=== PATIENT | female | born 1935 | race Two or more races ===

== ENCOUNTER → 2023-03-23 | Outpatient (CLI) | payer MEDICARE, BC, SELFPAY ==
--- NOTE | 2023-03-23 | IMM_PTH ---
PATIENT: ADILENE CRAWFORD LOC: [facility]#:[id number] AGE/SX: 87/F ROOM: RE03/23/[address]: Dr. Moshe Mendoza DO : 1935 BED: DIS: 03/23/2023 SPEC #: [id number] RECD: 03/26/23 13:32 STATUS: LETITIA REQ #: [id number] NICHO: 03/23/23 00:[address]: Moshe Mendoza DEPT: IMMUNOHISTOCHEMISTRY RECD BY: Ivonne Zamudio ENTERED: 03/26/23 13:34 SP TYPE: IMMUNO OTHR DR: Dr. Sarbjit Anaya MD No Primary Care Phys Tissues: THORACIC FLUID Procedures: RCC (add) NAPSIN A (add) CA-125 (add) CEA (add) CK20 (add) CK7 (add) CK8 (add) GIANCARLO (add) HEP PAR (add) HER2 RONEN (add) KI-67 (add) MAMM (add) P53 (add) DE (add) TTF1 (add) Vimentin (add) Pankeratin (add) GATA3 (add) CDX2 (add) ER (initial) S-100 (add) PHYSICIAN & [place] [id number] SPECIMEN INFORMATION: Tissue Source: Thoracentesis fluid Clinical Info: Pleural effusion, carcinoma of fallopian tube Specimen Number: [id number] CPT code: 79647, 42487 x20 METHODOLOGY: Deparaffinized sections of prefer/formalin-fixed tissue or PAP/DQ stained slides are incubated with monoclonal/polyclonal antibodies/oligonucleotide probes. Localization is made via biotin free immunoperoxidase method. Appropriate controls are performed and reacted as expected. Results on target cell population are indicated in the following table: RESULTS: ANTIBODY / CLONE RESULT ER (6F11) negative DE (1E2) negative Her-2neu (CB11) negative Mammaglobin (31A5) negative GATA3 (L50-823) negative AE1-3 (AE1/AE3/PCK26) positive CK7 (OV-TL12/30) positive CK8 (03zjpyY00) positive CK20 (KS20.8) negative CDX2 (VBR0203D) negative Vimentin (V9) negative S-100 (4C4.9) negative TTF-1 (8G7G3/1) negative Napsin A (Rabbit Polyclonal) negative HepPar (OCh1E5) negative RCC (PN-15) negative GIANCARLO (E29) positive CEA (11-7/TF-3HB-1) negative CA125 (OC125) positive P53 (DO-7) positive, 80% Ki-67 (30-9) positive, 75% These tests were developed and their performance characteristics determined by [facility]. They may not have been cleared or approved by the U.S. Food and Drug Administration. The FDA has determined that such clearance or approval is not necessary. The above immunohistochemical/dualISH markers are ordered and reviewed by the Pathologist. INTERPRETATION: Thoracentesis fluid (cell block): Metastatic carcinoma. See comment. AM:kirti 03/27/2023 Comment: Consistent with metastatic ovarian/fallopian tube primary.
--- NOTE | 2023-03-23 09:31 | US_ITS ---
PROCEDURE: ULTRASOUND GUIDED THORACENTESIS. DATE: March 23, 2023. INDICATION: Female, 87 years old. Left pleural effusion. PHYSICIAN: Sarbjit Anaya M.D. PROCEDURE: The risks, benefits, and alternatives to the procedure were explained to the patient. The specific risks of bleeding, infection, and pneumothorax requiring chest tube insertion were discussed and accepted. Written informed consent was obtained. Ultrasonographic evaluation of the left lower pleural space was carried out. An adequate pocket was identified. The patient was placed in the sitting, upright position. The overlying skin was prepped and draped in sterile fashion. 1% lidocaine was administered subcutaneously for local anesthesia. Under ultrasound guidance, a 5French thoracentesis needle/catheter system was advanced into the left posterior lower pleural fluid collection. Approximately 1330 mL of nuria-colored fluid was drained. The catheter was removed, and a sterile dressing was applied. A specimen was collected and sent to the laboratory for analysis, as requested by the referring clinician. The patient tolerated the procedure well. A chest x-ray was ordered. US/Thoracentesis W US IMPRESSION: Ultrasound-guided left thoracentesis. Electronically Signed: Sarbjit Anaya MD at 10:49 EDT ,
[2023-03-23] MEDS: Lidocaine 2% (20 ml mdv) 20 ML Vial INFILT (10:10)
--- NOTE | 2023-03-23 10:13 | FLU_PTH ---
PATIENT: ADILENE CRAWFORD LOC: [facility]#:[id number] AGE/SX: 87/F ROOM: RE03/23/[address]: Dr. Moshe Mendoza DO : 1935 BED: DIS: 03/23/2023 SPEC #: [id number] RECD: 03/23/23 10:47 STATUS: LETITIA REJuancarlos #: [id number] NICHO: 03/23/23 10:[address]: Moshe Mendoza DEPT: CYTOLOGY RECD BY: Camille Krueger ENTERED: 03/23/23 11:47 SP TYPE: Fluid OTHR DR: Dr. Sarbjit Anaya MD No Primary Care Phys Tissues: Pleural fluid, NOS Procedures: Special Stain Group II Surgery Specimen Level IV Cytospin Fluid HEADER OPERATION: Ultrasound-guided left thoracentesis PRE-OP DIAGNOSIS: Pleural effusion, carcinoma of fallopian tube TISSUE SUBMITTED: Thoracentesis fluid for cytology DIAGNOSIS CYTOLOGY Thoracentesis fluid for cytology (cytospin and cell block): Positive for malignant cells consistent with metastatic carcinoma. See comment. AM:kirti 03/26/2023 COMMENT Immunohistochemistry ([id number]) supports the above diagnosis and is consistent with an ovarian/fallopian tube primary. Mucins stain with matched control is negative in the tumor cells. Case has been reviewed in consultation with Dr. Fabian who concurs with the above diagnosis. IDC:[facility] CYTOLOGY STUDY Slides are reviewed. CYTOLOGY GROSS Received is 100 ml of yellow cloudy fluid labeled with the patient's name and and designated per the requisition as thoracentesis. Submitted for cytology preparation including cell block. / kirti 03/23/2023 TC:0 CPT: 82062 ,15164,44958
--- NOTE | 2023-03-23 10:15 | RAD_ITS ---
STUDY: X-RAY CHEST REASON FOR EXAM: Female, 87 years old. Post thora TECHNIQUE: AP inspiration and expiration views. COMPARISON: None. FINDINGS: The patient is status post left thoracentesis. No evidence of pneumothorax. A left-sided PICC line catheter seen with the tip in the superior vena cava. Surgical clips are seen in the right axilla. RAD/Chest Insp/Exp 2 View IMPRESSION: Status post left thoracentesis. No evidence of pneumothorax. Electronically Signed: Sarbjit Anaya MD at 11:05 EDT ,
[2023-03-23 10:49] VITALS: BP 110/70; BP 115/75; BP 115/82; BP 119/82; PULSE 109; PULSE 110; PULSE 112; PULSE 61; RESP 16; RESP 18; TEMP 36.3; O2SAT 96; O2SAT 97; O2SAT 98
== END | disposition home or self-care (01) ==
PROVIDERS: Referring Provider Internal Medicine Hematology & Oncology; Visit Provider Internal Medicine Hematology & Oncology
DX: C57.02 Malignant neoplasm of left fallopian tube (principal); J90 Pleural effusion, not elsewhere classified; R18.0 Malignant ascites
CPT/HCPCS: 32555; 71046; 88108; 88305; 88313; 88341; 88342